=== PATIENT | male | born 2000 | race Hispanic/Latino ===

== ENCOUNTER 2021-07-30 18:14 | Emergency (ER) | payer BC ==
[2021-07-30 18:26] VITALS: BP 104/80
[2021-07-30] MEDS ORDERED: METOCLOPRAMIDE 10 MG/2 ML INJ IV ONE (18:29)
[2021-07-30] MEDS ORDERED: SODIUM CHLORIDE 0.9% 1000 ML 1,000 ML IV ONE (18:29)
--- NOTE | 2021-07-30 18:35 | Emergency Department Report ---
ED N/V/D HPI - General Chief complaint: Nausea/Vomiting/Diarrhea Stated complaint: POST OP COMPLICATIONS Time Seen by Provider: 07/30/21 18:28 Source: patient Mode of arrival: Ambulatory Limitations: No Limitations - History of Present Illness Initial comments: Patient presents with nausea, vomiting, and an upset stomach. Patient was driving from [place] to [place]. While in [place], he developed worsening abdominal pain. He was seen to the hospital and diagnosed with appendicitis. At 6 AM yesterday, his appendix was removed. He was discharged today. Subsequent to his discharge, he was placed on antibiotics and analgesics. He was not given any antiemetics. Patient states that since he has been taking the antibiotics and analgesics he has had ongoing vomiting. He states that he cannot keep anything down. He does feel lightheaded when standing. He has had no diarrhea. There is no hematemesis or coffee-ground emesis. He states that h viviana is still having some pain from surgery, but does not think that he is having anything that would be unreasonable given his presentation. The pain is just around the surgery site. - Related Data Previous Rx's Medication Instructions Recorded Last Taken Type Metoclopramide [Reglan] 10 mg PO ACHS PRN #20 tablet 07/30/21 Unknown Rx Promethazine [Phenergan] 25 mg SC QHS PRN #7 supp.rect 07/30/21 Unknown Rx Allergies Allergy/AdvReac Type Severity Reaction Status Date / Time azithromycin Allergy Unknown Verified 07/30/21 18:22 epinephrine Allergy Unknown Verified 07/30/21 18:22 ED Review of Systems ROS: Stated complaint: POST OP COMPLICATIONS Other details as noted in HPI Comment: All other systems reviewed and negative Constitutional: denies: fever Eyes: denies: eye pain ENT: denies: ear pain Respiratory: denies: cough Cardiovascular: denies: chest pain Endocrine: denies: unexplained weight loss Gastrointestinal: as per HPI Genitourinary: denies: dysuria Musculoskeletal: denies: back pain Skin: denies: rash Neurological: denies: headache Hematological/Lymphatic: denies: easy bruising ED Past Medical Hx - Past Medical History Previous Medical History?: No Additional medical history: QT prolongation - Surgical History Past Surgical History?: Yes Hx Appendectomy: Yes (07/29/2021) - Family History Family history: no significant - Medications Home Medications: Home Medications Medication Instructions Recorded Confirmed Last Taken Type Metoclopramide [Reglan] 10 mg PO ACHS PRN #20 tablet 07/30/21 Unknown Rx Promethazine [Phenergan] 25 mg SC QHS PRN #7 supp.rect 07/30/21 Unknown Rx ED Physical Exam - General Limitations: No Limitations, Other (Pulse ox was noted and normal) General appearance: alert, in no apparent distress - Head Head exam: Present: atraumatic, normocephalic, normal inspection - Eye Eye exam: Present: normal appearance, EOMI. Absent: scleral icterus - ENT ENT exam: Present: mucous membranes dry, normal external ear exam - Neck Neck exam: Present: normal inspection. Absent: meningismus - Respiratory Respiratory exam: Present: normal lung sounds bilaterally. Absent: respiratory distress - Cardiovascular Cardiovascular Exam: Present: regular rate, normal rhythm - GI/Abdominal GI/Abdominal exam: Present: soft, tenderness (Mild incisional tenderness without rebound) - Extremities Exam Extremities exam: Present: normal capillary refill. Absent: pedal edema - Back Exam Back exam: Absent: CVA tenderness (R), CVA tenderness (L) - Neurological Exam Neurological exam: Present: alert, oriented X3, normal gait. Absent: motor sensory deficit - Psychiatric Psychiatric exam: Present: normal affect, normal mood - Skin Skin exam: Present: warm, dry ED Course Vital Signs 07/30/21 18:25 Temperature 98.7 F Pulse Rate 82 Respiratory 16 Rate Blood Pressure 104/80 [Left] O2 Sat by Pulse 98 Oximetry - Reevaluation(s) Reevaluation #1: 07/30/21 18:33 IV and medications were ordered. Reevaluation #2: 07/30/21 19:53 Patient had improved after treatment and was discharged. ED Medical Decision Making - Medical Decision Making Patient presented with postoperative nausea and vomiting. He does not have any significant pain that would suggest any type of postoperative infection. He was discharged on antibiotics. He does not appear to be toxic. He has not had hematemesis. Patient has been hydrated here. We have used metoclopramide and can prescribe metoclopramide at home. He does not have intractable vomiting that would necessitate admission at this point. He clinically does not appear jaundiced. I do not believe this represents hepatitis or pancreatitis. Critical Care Time: No Critical care attestation.: If time is entered above; I have spent that time in minutes in the direct care of this critically ill patient, excluding procedure time. ED Disposition Clinical Impression: Postoperative nausea and vomiting Disposition: 01 HOME / SELF CARE / HOMELESS Is pt being admited?: No Condition: Stable Instructions: Nausea and Vomiting, Adult Additional Instructions: Have a bland diet. Drink plenty of water. Return for problems. Take the antibiotics as prescribed. Prescriptions: Promethazine [Phenergan] 25 mg SC QHS PRN #7 supp.rect PRN Reason: Nausea Metoclopramide [Reglan] 10 mg PO ACHS PRN #20 tablet PRN Reason: Nausea Referrals: PRIMARY CARE, [Referring] - 3-5 Days
== END 2021-07-30 20:48 | disposition home or self-care (01) ==
LOC: ED 18:14
DX: K91.0 Vomiting following gastrointestinal surgery (principal)
CPT/HCPCS: 96361; 96374; 99282; J2765; J7030